=== PATIENT | female | born 1970 | race Caucasian/White ===

== ENCOUNTER 2017-09-15 20:33 | Emergency (ER) | payer MEDICARE ==
[~2017-09-15] VITALS: Ht 167.6 cm; Wt 90.7 kg
[2017-09-15 20:40] VITALS: BP 196/112
[2017-09-15] MEDS ORDERED: ACETAMINOPHEN-1 EAC1 PO (20:55)
[2017-09-15] MEDS ORDERED: CLEOCIN HCL300 MG PO (20:55)
== END 2017-09-15 21:38 | disposition home or self-care (01) ==
LOC: M.ERS 20:33
DX: L02.01 Cutaneous abscess of face (principal); I10 Essential (primary) hypertension; E11.9 Type 2 diabetes mellitus without complications; F31.9 Bipolar disorder, unspecified; Z88.0 Allergy status to penicillin; Z88.8 Allergy status to other drugs, medicaments and biological substances